=== PATIENT | female | born 2000 | race Two or more races ===

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

== ENCOUNTER 2022-09-19 17:58 | Observation (INO) | payer BC ==
[~2022-09-19] VITALS: Ht 154.9 cm; Wt 73.5 kg
[~2022-09-19 17:58] MED LIST: FAMO-141 PO
[2022-09-19] MEDS ORDERED: PREN-96 PO (18:21)
== END 2022-09-19 19:56 | disposition home or self-care (01) ==
LOC: LDRP 17:58
PROVIDERS: ADMIT Obstetrics & Gynecology; ATTEND Obstetrics & Gynecology
DX: O26.893 Other specified pregnancy related conditions, third trimester (principal); R10.9 Unspecified abdominal pain; O46.93 Antepartum hemorrhage, unspecified, third trimester; O99.891 Other specified diseases and conditions complicating pregnancy; M54.9 Dorsalgia, unspecified; O62.9 Abnormality of forces of labor, unspecified; Z3A.38 38 weeks gestation of pregnancy
CPT/HCPCS: 59025; 81002; 94760; G0378